=== PATIENT | female | born 1955 | race Two or more races ===

== ENCOUNTER → 2023-07-17 | Outpatient (CLI) | payer OTHER, MEDICARE ==
--- NOTE | 2023-07-17 17:54 | US ---
EXAMINATION TYPE: US kidneys/renal and bladder DATE OF EXAM: 07/17/2023 COMPARISON: NONE CLINICAL INDICATION: Female, 68 years old with history of R31.9 HEMATURIA, UNSPECIFIED; EXAM MEASUREMENTS: Right Kidney: 9.8 x 4.7 x 4.5 cm Left Kidney: 10.8 x 4.8 x 4.5 cm Right Kidney: wnl Left Kidney: 4.9 x 3.9 x 5.5cm cyst inferior pole there is a thin septation present. Bladder: wnl Bilateral Jets seen: yes There is no evidence for hydronephrosis at this point in time. No nephrolithiasis is seen. No amos s are identified. The urinary bladder is anechoic. Bilateral ureteral jets are seen. IMPRESSION: 1. No evidence for obstructive uropathy. 2. Bilateral renal cysts in the inferior left kidney with thin septation.
== END | disposition home or self-care (01) ==
LOC: RADUSWWP 15:21
PROVIDERS: ATTEND Internal Medicine
DX: N28.1 Cyst of kidney, acquired (principal); R31.9 Hematuria, unspecified
CPT/HCPCS: 76770